=== PATIENT | female | born 1995 | race Caucasian/White ===

== ENCOUNTER 2021-07-26 06:35 | Inpatient (IN) | payer SELFPAY, OTHER ==
[2021-07-26] VITALS (23 sets, daily range): BP systolic 84–108; BP diastolic 42–67; PULSE 52–73; RESP 14–18; TEMP 35.8–37.1; O2SAT 96–100; BMI 25.0
[2021-07-26] MEDS: Lactated Ringers 1,000 ML 999 ML IV ×2 (07:25→12:55)
[2021-07-26] MEDS: Sodium Citrate/Citric Acid 30 ML UDC PO (07:30)
[2021-07-26] MEDS: Acetaminophen 500 MG Tablet 1000 MG PO ×3 (07:36→19:46)
[2021-07-26 07:48] LABS: Absolute Lymphocyte Count 1.73 X10^3/uL (0.83-4.51); Absolute Neutrophil Count 4.6 X10^3/uL (2.0-7.7); Basophil# 0.03 X10^3/uL; Basophil% 0.4 % (0-1); Eosinophil# 0.04 X10^3/uL; Eosinophils% 0.6 % (0-5); Hemoglobin 11.9 g/dL (12.0-15.0); Lymphocyte # 1.73 X10^3/ul (0.83-4.51); Lymphocyte % 24.6 % (19-41); Mean Corpuscular Hgb 29.2 pg (27.0-32.0); Mean Platelet Vol. 10.1 fl (6.2-12.0); Monocyte# 0.61 X10^3/uL; Monocyte% 8.7 % (0-10); NRBC Flagged by Analyzer 0 % (0-5); Neutrophil # 4.55 X10^3/uL (2.7-7.7); Neutrophil % 64.7 % (47-70); Platelet Count 263 K/mm3 (150-450); RBC Distribution Width CV 14.9 % (11.6-14.6); RBC Distribution Width SD 46.5 fl (35.1-43.9); Red Blood Count 4.07 M/mm3 (4.2-5.4)
--- NOTE | 2021-07-26 07:50 | HP.PCM.OB_ITS ---
HPI - General General Date of Admission: 07/26/21 HPI Narrative ANANT JEFFERS, is a 25 F who presents from [facility] with contractions, 6 cm dilated with BBOW, and breech presentation. H/o 2 vaginal deliveries followed by a section for breech presentation. Planned for TOLAC at [facility] for this . She presented to our office for 2 visits for co-care. Maternal Data Information MICHELLE Calculator Estimated Delivery Date Method Current WG Current Estimate 07/30/21 Ultrasound #1 39w 3d PFSH PFSH Medical History (Updated 07/26/21 @ 13:[address] Teresita Cain, DO) Anxiety Depression Headache Late care affecting in first trimester Superficial varicosities Vaginal after Allergy/AdvReac Type Severity Reaction Status Date / Time No Known Allergies Allergy Verified 07/26/21 07:29 Family History (Updated 07/26/21 @ 12:14 by Mackenzie Chaudhry) Other Family history of defect Surgical History (Updated 07/26/21 @ 13:[address] Teresita Cain, ) History of surgery Previous section Social History Smoking Status: Never smoker History Elective abortions Hx Para 3 Spontaneous abortions Hx # Term Pregnancies Ectopic pregnancies Hx # Pregnancies Multiple births # of living children Vital Signs Vital Signs Vital Signs: Weight Weight: 141 lb Body Mass Index (BMI) 25.0 Labs Labs Labs: Blood Type O POSITIVE Antibody Screen NEGATIVE Hct 35.0 % (37-47) L Hgb 11.9 g/dL (12.0-15.0) L HIV 1&2 Antibody Non-Reactive (Nonreactive) Assessment & Plan (1) 39 weeks gestation of : PLAN: - Pt presented in active labor from [facility] in breech presentation. Discussed r/b/a to a section and consent signed. Patient desired to proceed with section. Routine pre op care. See operative report for details. Had her care through [facility]. She presented to our office at 27 weeks and 38 weeks for co-care. (2) Active labor: (3) Breech presentation: (4) History of section:
[2021-07-26] MEDS: Cefazolin 2 GM in 0.9% Normal Saline 100 ML IV (07:55)
--- NOTE | 2021-07-26 08:58 | OP.PCM_ITS ---
Problems Associated Problem List Diagnoses (1) History of section: (2) Breech presentation: (3) Active labor: (4) 39 weeks gestation of : Report of Operation Date of Procedure: 07/26/21 Pre-Operative Diagnosis: 39 week gestation, breech presentation, active labor, history prior section Post-Operative Diagnosis: As above Surgery/Procedure Performed:: Primary low transverse section via pfannenstiel incision Description of Surgical Findings:: Patient presented in active labor at 6 cm dilated with BBOW, and breech presentation. Minimal to no adhesive disease. Normal uterus and bilateral adnexa. Normal placenta. VFI in breech presentation but flipped to transverse back down upon rupture of membranes. Surgeon: Teresita Cain visual merchandising coordinator: Renae Type of Anesthesia: Spinal Special Medications: None Specimen's removed: Placenta Drains: Scott Estimated Blood Loss (mL): 500 Fluids Replaced: 1000 Description of Procedure: An ultrasound was performed confirming breech presentation. Patient was taken back to the operating room EDDIE where spinal anesthesia was adequate. FHT were assessed and WNL. Fetus was palpated to be in breech presentation. The buttock was not engaged in the pelvis. A scott was placed in the bladder. She was prepped and draped in the usual sterile fashion in dorsal position with a leftward tilt. A skin incision was made along the prior incision using a scalpel. This was carried down to the underlying layer of fascia. The fascia was incised in the midline, and extended laterally using mcmullen scissors. The fascia was dissected off the rectus muscles using a combination of blunt and sharp dissection, with some adhesive disease present. The rectus muscles were separate in the midline and the peritoneum was entered sharply with good visualization of the bladder. The peritoneal incision was extended bluntly. A bladder flap was made using scissors. A low transverse incision was made on the uterus with the scalpel, and the hysterotomy was extended bluntly. The membranes were intact. The buttock was palpated and attempt was made to bring the unengaged buttock to the hysterotomy, but the membranes then ruptured and the fetus moved to transverse back down. The buttock was able to be palpated, and it was felt that making an additional incision on the uterus would not assist in delivery of the buttock. The buttock was able to be brought to the hysterotomy. The 's buttock was then delivered with the back up, followed by the legs and body of the infant. Using gentle rotation the arms then delivered, and with fundal pressure the head was easily delivered in a flexed position. The cord was clamped and cut immediately and the infant handed off to the awaiting nursery staff. The uterus was exteriorized and the placenta removed with manual extraction. Cord gases were sent. The uterus was cleared of all clot and debris. The uterine incision was closed in 2 layers. The first layer was a running locked layer using Vicryl followed by a second imbricating layer using Vicryl. The uterus was placed back into the abdomen. The gutters were cleared. Two additional figure of eight sutures were placed for hemostasis. Arrista was placed over the hysterotomy. Hemostasis was noted. The peritoneum was closed with Vicryl in a running fashion. The fascia was closed with Strattafix in a running fashion. The subcutaneous space was irrigated and made hemostatic with the Bovie cautery. Arrista was placed in the subcutaneous space as it was generally oozing. The subcutaneous space was reapproximated with three interrupted Vicryl stitches to reapproximate the skin better. The skin was then closed with Monocryl in a subcuticular fashion. A dressing was placed. Instrument, sponge and needle counts were correct. The patient was taken to the recovery room in stable condition. Grafts/Implants Used: None Complications None Admit VTE Documentation VTE Present on Admission: No VTE Mechan Device Prophylaxis: SCD's
[2021-07-26 09:16] LABS: HIV - WCH Non-Reactive (Nonreactive); Hepatitis C Antibody Non-Reactive (Nonreactive)
[2021-07-26] MEDS: Oxytocin 30 units/NS 500 ml 30 UNITS/500 ML IV.SOLN 167 UNITS IV (09:20)
[2021-07-26] MEDS: Ketorolac 30 MG/ML Syringe IV ×3 (09:52→21:38)
[2021-07-26] MEDS: 0.9% Saline Lock 10 ML Syringe IV ×2 (09:53→21:39)
[2021-07-26] MEDS: Lactated Ringers 1,000 ML 100 ML IV (12:25)
--- NOTE | 2021-07-26 12:37 | NURSING ---
phone call placed to dr ruiz- made aware of drainage on mepilex about 1/3 saturated- plan will be to placed a binder on pt. dr ruiz made aware of pts decrease in urine output less than 30 cc over last hour- plan is to give [address] ruiz made aware of BP 88/49 and pulse of 55. dr ruiz made aware of pts statement that she thinks she had a blood clot 1-2 months ago but did not seek medical attention and it went away in [address] wang made aware that pt is Non Immune to MMR and that she refused the vaccine.
--- NOTE | 2021-07-26 12:57 | NURSING ---
binder on and pressure to abd incision
--- NOTE | 2021-07-26 13:53 | NURSING ---
small amount of additional drainage on dressing
--- NOTE | 2021-07-26 15:44 | NURSING ---
pt up oob to chair
--- NOTE | 2021-07-26 16:04 | NURSING ---
mepilex is 50% saturated- abd binder remains on with pressure from a rolled towel
--- NOTE | 2021-07-26 16:07 | NURSING ---
dr ruiz made aware of mepilex 50% saturated- ok to replace mepilex dressing per dr ruiz
--- NOTE | 2021-07-26 17:41 | NURSING ---
mepilex dressing changed per Dr Cain request; no active bleeding see at incision site- new mepilex dressing applied- binder back on without towel
[2021-07-26] MEDS: Lactated Ringers 500 ML 999 ML IV (20:27)
[2021-07-27] MEDS: Acetaminophen 500 MG Tablet 1000 MG PO ×4 (01:51→21:02)
[2021-07-27 03:45] VITALS: BP 93/47; BP 94/51; PULSE 57; RESP 18; TEMP 37
[2021-07-27] MEDS: Ketorolac 30 MG/ML Syringe IV (03:55)
[2021-07-27] MEDS: 0.9% Saline Lock 10 ML Syringe IV (03:55)
[2021-07-27 04:13] LABS: Hematocrit 29.3 % (37-47); Mean Corp Hgb Conc 34.1 g/dL (32-36); Mean Corpuscular Hgb 29.5 pg (27.0-32.0); Mean Corpuscular Volume 86.4 fL (81-99); Platelet Count 196 K/mm3 (150-450); RBC Distribution Width CV 14.8 % (11.6-14.6); RBC Distribution Width SD 46.7 fl (35.1-43.9); Red Blood Count 3.39 M/mm3 (4.2-5.4); White Blood Count 7.1 K/mm3 (4.4-11.0)
[2021-07-27 08:30] VITALS: BP 97/58; PULSE 56; RESP 18; TEMP 36.4
[2021-07-27] MEDS: Ibuprofen 600 MG Tablet PO ×3 (10:23→21:57)
--- NOTE | 2021-07-27 13:20 | PCM.PN.OB ---
Subjective Subjective Denies complaints Objective Data Objective Data Vital Signs: Vital Signs Temp Pulse Resp BP Pulse Ox 97.6 F L 56 L 18 97/58 L 98 07/27/21 08:30 07/27/21 08:30 07/27/21 08:30 07/27/21 08:30 07/26/21 23:50 Oxygen Delivery Method Room Air Weight: 141 lb Body Mass Index (BMI) 25.0 Intake & Output: Intake and Output for Last 24 Hours 07/25/21 07/26/21 07/27/21 23:59 23:59 23:59 Intake Total 5748.52 / 5748.52 Output Total 1500 / 2100 1250 / 1250 Balance 4248.52 / 3648.52 -1250 / -1250 Lab / Micro Data Result Diagrams: 07/27/21 04:05 Labs: Laboratory Results - last 24 hr 07/27/21 04:05: WBC 7.1, RBC 3.39 L, Hgb 10.0 L, Hct 29.3 L, MCV 86.4, MCH 29.5, MCHC 34.1, RDW Std Deviation 46.7 H, RDW Coeff of Wojciech 14.8 H, Plt Count 196, MPV 10.0 Micro: Microbiology 07/26/21 07:30 Nasal Secretion SARS-CoV-2 Antigen (Rapid) - Final Physical Exam Const alert, oriented x3 and no apparent distress HEENT normocephalic GI soft to palpation, non-tender and non-distended GI Narrative: fundus firm, mid & below umbilicus Incision - bandage c/d/i Extremity normal to inspection and no calf tenderness Assessment & Plan (1) History of section: COMMENT: POD#1 PLAN: Heme - HDS, CBC reviewed ID - AF, no signs infection - no issues GI - tolerating regular diet Routine care
[2021-07-27 13:42] VITALS: BP 96/54; PULSE 68; RESP 18; TEMP 36.6
[2021-07-27] MEDS: Senna/Docusate Sodium 1 Tablet PO (13:44)
[2021-07-27 19:34] VITALS: BP 103/61; PULSE 59; RESP 16; TEMP 36.6
[2021-07-28 02:10] VITALS: BP 108/62; PULSE 65; RESP 16; TEMP 36.6
[2021-07-28] MEDS: Acetaminophen 500 MG Tablet 1000 MG PO ×2 (03:45→10:48)
[2021-07-28] MEDS: Ibuprofen 600 MG Tablet PO ×2 (03:45→10:48)
[2021-07-28 08:01] VITALS: BP 108/69; PULSE 75; RESP 16; TEMP 36.8
--- NOTE | 2021-07-28 08:59 | PN.OBGYN_ITS ---
Subjective Subjective Pain well controlled. Average lochia. No bowel movement but tolerating regular diet and passing flatus. Urinating without difficulty. Objective Data Objective Data Vital Signs: Vital Signs Temp Pulse Resp BP Pulse Ox 98.3 F 75 16 108/69 98 07/28/21 08:01 07/28/21 08:01 07/28/21 08:01 07/28/21 08:01 07/26/21 23:50 Oxygen Delivery Method Room Air Weight: 63.957 kg Body Mass Index (BMI) 25.0 Intake & Output: Intake and Output for Last 24 Hours 07/26/21 07/27/21 07/28/21 23:59 23:59 23:59 Intake Total 5748.52 / 5748.52 Output Total 1500 / 2100 1250 / 1250 Balance 4248.52 / 3648.52 -1250 / -1250 Lab / Micro Data Result Diagrams: 07/27/21 04:05 Micro: Microbiology 07/26/21 07:30 Nasal Secretion SARS-CoV-2 Antigen (Rapid) - Final Physical Exam Const alert General Appearance: cooperative GI GI Narrative: soft, moderate distention, fundus firm, appropriately tender. Abdominal bandage clean dry and intact Assessment & Plan (1) History of section: COMMENT: POD#2 PLAN: day #2 status post repeat section for active labor and breech. Patient and are doing well. is breast- feeding. Patient desires discharge home today. Has not been taking narcotic pain medication.
--- NOTE | 2021-07-28 09:00 | PCM.DC.SUM ---
Providers Date of Admission: 07/26/21 Primary Care Physician: Dr. Magdiel Johnson DO Reason For Visit: REPEAT CSECTION Diagnosis Discharge Diagnosis (1) History of section: Status: Acute Code(s): Z98.891 - History of uterine scar from previous surgery Hospital Course Operations - (Repeat low transverse section performed on 07/26/2021) Summary of Care Provided Hospital Course: Liss is a 25-year-old multigravida female with history of previous section and breech presentation of her fetus who presented in active labor. Patient was taken for repeat section which was performed on 07/26/2021 without complications. By postoperative day #2 she was ambulating, urinating tolerating regular diet without difficulty. She was discharged home with routine instructions. Weight / BMI Weight Weight: 63.957 kg Body Mass Index (BMI) 25.0 ABG / Lab / Microbiology Data Result Diagrams: 07/27/21 04:05 Microbiology: Microbiology 07/26/21 07:30 Nasal Secretion SARS-CoV-2 Antigen (Rapid) - Final Meaningful Use Info Meaningful Use Diagnoses (Choose all that apply): None applicable Discharge Plan Admission Admit Date/Time: 07/26/21 06:35 Primary Reason for Your Visit: Breech fetus, repeat Attending Provider: Teresita Cain Primary Care Provider: Magdiel Johnson Discharge Orders/Prescriptions Referrals / Follow Up: Magidel Johnson DO [Primary Care Provider] - Disposition Disposition (needs filled in before D/C Order can be placed): Home, Self Care
[2021-07-28] MEDS: Senna/Docusate Sodium 1 Tablet PO (10:48)
--- NOTE | 2021-07-28 10:53 | CASEMGMT ---
Social Work Assessment Labor and Delivery Unit Date/Time of Referral: 07/26/21, 12:20pm Referred By: Dr. Teresita Cain DO Date/Time of Intervention: 07/28/21, 10am Reason for referral: History of Anxiety and Depression History obtained from: JEFFERY Household composition: MATTHEW GIL, 4 children--ages 4.5, 3.5, 1.5 and now Leandra. MOB and FOBrittany have been together for 5.5 years Parent/Guardian Status: MOB and FOB are guardians of all four children Medical History: MOB, anxiety, depression, late care, headache. Baby Leandra: Born 07/26/21 at 8:50am, 3.06kg. Apgars 2,8,9 and 1, 5 and 10 minutes Educational Status: MOB and FOBrittany completed school until the 8th grade Financial: No concerns. FOB works as a finisher, MOB stays home with the children supplies: They have all needed supplies including car seat, bassinet, clothing, diapers, wipes. MOB plans to breast feed. They have a crib, however the 1.5 year old is using it. Childcare/Caregivers: JEFFERY, MATTHEW. JEFFERY's sister who is 14 is going to stay with them during the day for the next 6 weeks to help. JEFFERY's mother lives across the field and will help, JEFFERY also has another sister she thinks will help. Transportation: They have a commercial relief driver, access to transportation Programs/Agencies Involved: None Children's Services/Legal Issues: None Behavioral Health Issues: Substance abuse, none for FOB or MOB. No tox screens completed on this admission for MOB or baby. Mental Health: MATTHEW has no history. MOB explains she has never been formally diagnosed with anxiety or depression. She states she thinks she has had symptoms of anxiety and depression however. JEFFERY then asked SW exactly what anxiety and depression are. SW educated JEFFERY on what anxiety and depression is. JEFFERY explains that she has had moments of feeling down, but it was more situational. JEFFERY gave an example that her family went on vacation to [place] and she was not able to go as she had 3 children and was at the time. She states that she was having a pity constitution party for herself, but got over it and was okay with it. She then went on to say she has a brand new house she and her family just moved into last week, and is very happy about this. She states she prefers to have this new house than to have gone on vacation. She also mentioned feeling down when during the pandemic. Other than that however, pt does not think depression is actually a concern for her. When discussing anxiety, JEFFERY identified that she has had more symptoms of anxiety in the past. She states recently however she has been managing well. She states she found a combination of oils she takes that helps. We talked about speaking to her doctor should any symptoms of anxiety or depression increase, and we also discussed counseling. MOB may be open to counseling at some point should it be needed. Family/Social Stressors: JEFFERY does not identify any stressors at this time. She states there was some issues with her 's family, but those are resolving now. Support Systems: JEFFERY's family is supportive, MATTHEW's family is further away, MOB states they would come help if asked Depression and Anxiety/Shaken Baby/Help Me Grow/Safe Sleeping/Resources: SW provided information on all of these topics, reviewed the information in particular around depression and anxiety. MOB states she has not had any increase of any depressive symptoms in the past. SW gave MOB list of [facility] Resources, pointed out [facility] as a resource for counseling. SW also gave MOB the number to the 24 hour hotline for [facility] should she need it. Assessment: JEFFERY appropriate, answered all questions, and asked good questions for clarification on depression and anxiety. JEFFERY had little knowledge base of anxiety and depression, was open to hearing the information and seemed to understand the explanations. Though she had little knowledge base, she was able to identify that she has had struggles with anxiety, and has addressed it using oils that she identifies as helping. MOB made aware of warning signs for these mental health issues and was encouraged to speak to her doctor should she have any increased symptoms. MOB seems open to the idea of asking for help with her mental health should she need it. Plan: Baby to go home with MOB and FOBrittany, later today. No further social service needs identified or anticipated. EMMA Schaeffer
[2021-07-28 12:08] VITALS: BP 111/65; PULSE 66; RESP 16; TEMP 36.6
== END 2021-07-28 12:55 | disposition home or self-care (01) | DRG 788 ==
PROVIDERS: Admitting Provider Obstetrics & Gynecology; PCP Family Medicine; Visit Provider Obstetrics & Gynecology
DX: O34.211 Maternal care for low transverse scar from previous cesarean delivery (principal); O32.1XX0 Maternal care for breech presentation, not applicable or unspecified; Z3A.39 39 weeks gestation of pregnancy; Z37.0 Single live birth
CPT/HCPCS: 59025; 85025; 85027; 86703; 86803; 86850; 86900; 86901; 87426; 99218; J7120; A4216; G0378; J2405

== ENCOUNTER 2024-05-07 09:32 | Inpatient (IN) | payer SELFPAY, OTHER ==
[2024-05-07] VITALS (16 sets, daily range): BP systolic 90–107; BP diastolic 60–81; PULSE 54–80; RESP 14–19; TEMP 36.2–36.8; O2SAT 96–100; BMI 24.2
[2024-05-07] MEDS: Lactated Ringers 1,000 ML 999 ML IV (09:45)
[2024-05-07 10:14] LABS: Absolute Lymphocyte Count 1.51 X10^3/uL (0.83-4.51); Absolute Neutrophil Count 4.8 X10^3/uL (2.0-7.7); Basophil# 0.02 X10^3/uL; Basophil% 0.3 % (0-1); Eosinophil# 0.05 X10^3/uL; Eosinophils% 0.7 % (0-5); Hematocrit 36.5 % (37-47); Hemoglobin 12.3 g/dL (12.0-15.0); Lymphocyte # 1.51 X10^3/ul (0.83-4.51); Mean Corp Hgb Conc 33.7 g/dL (32-36); Mean Corpuscular Hgb 29.9 pg (27.0-32.0); Mean Corpuscular Volume 88.6 fL (81-99); Mean Platelet Vol. 10.7 fl (6.2-12.0); Monocyte# 0.42 X10^3/uL; Monocyte% 6.1 % (0-10); NRBC Flagged by Analyzer 0 % (0-5); Neutrophil # 4.78 X10^3/uL (2.7-7.7); Neutrophil % 69.9 % (47-70); Platelet Count 172 K/mm3 (150-450); RBC Distribution Width CV 14.7 % (11.6-14.6); RBC Distribution Width SD 47.6 fl (35.1-43.9); Red Blood Count 4.12 M/mm3 (4.2-5.4); White Blood Count 6.9 K/mm3 (4.4-11.0)
[2024-05-07] MEDS: Acetaminophen 500 MG Tablet 1000 MG PO ×3 (10:38→22:30)
[2024-05-07 11:07] LABS: Syphilis Antibodies Non-reactive
--- NOTE | 2024-05-07 11:58 | PN.OBGYN_ITS ---
Subjective Subjective Doing well. Ambulating and voiding without difficulty. Mild lochia. Breast feeding. Objective Data Objective Data Vital Signs: Vital Signs Temp Resp Pulse Ox 97.2 F L 15 100 05/07/24 10:35 05/07/24 10:35 05/07/24 10:35 Weight: 68.039 kg Body Mass Index (BMI) 24.2 Lab / Micro Data 05/08/24 04:40 Labs: Laboratory Results - last 24 hr 05/07/24 09:45: WBC 6.9, RBC 4.12 L, Hgb 12.3, Hct 36.5 L, MCV 88.6, MCH 29.9, MCHC 33.7, RDW Std Deviation 47.6 H, RDW Coeff of Wojciech 14.7 H, Plt Count 172, MPV 10.7, Immature Gran % (Auto) 1.000 H, Neut % (Auto) 69.9, Lymph % (Auto) 22.0, Mccracken % (Auto) 6.1, Eos % (Auto) 0.7, Baso % (Auto) 0.3, Absolute Neuts (auto) 4.8, Absolute Lymphs (auto) 1.51, Nucleated RBC % 0, Syphilis Total Ab Non- reactive, Blood Type O POSITIVE, Antibody Screen NEGATIVE ROS Constitutional Constitutional: Denies fatigue, fever(s) or malaise Eyes Eyes: Denies change in vision ENT HEENT: Denies dizziness or headache(s) Cardiovascular Cardiovascular: Denies chest pain, dyspnea or lightheadedness Respiratory/Chest Respiratory/Chest: Denies cough or dyspnea Gastrointestinal Gastrointestinal: Denies change in bowel habits Genitourinary Genitourinary: Denies burning urination or genital lesions Integumentary Integumentary: Denies rash Neurologic Neurologic: Denies confusion, dizziness, headache(s), numbness or weakness Physical Exam Const alert General Appearance: cooperative GI GI Narrative: soft, moderate distention, fundus firm, appropriately tender. Abdominal bandage clean dry and intact Assessment & Plan (1) S/P repeat low transverse : PLAN: Plan discharge home
--- NOTE | 2024-05-07 11:58 | PCM.HP.OB ---
HPI - General General Date of Admission: 05/07/24 Date of Service: 05/07/24 Chief Complaint: Repeat c/s HPI Narrative ANANT JEFFERS, is a 28 F who presents repeat at 40.4 Maternal Data Information Final MICHELLE: 05/03/24 Gestational age: 40+6 [facility] Medical History Late care affecting in first trimester Vaginal after Superficial varicosities Depression Anxiety Headache Allergy/AdvReac Type Severity Reaction Status Date / Time No Known Allergies Allergy Verified 07/26/21 07:29 Family History Other Family history of defect Surgical History History of section History of surgery Previous section Social History Smoking Status: Never smoker History Elective abortions Hx Para 4 Spontaneous abortions Hx # Term Pregnancies Ectopic pregnancies Hx # Pregnancies Multiple births # of living children ROS Constitutional Constitutional: Denies fatigue, fever(s) or malaise Eyes Eyes: Denies change in vision ENT HEENT: Denies dizziness or headache(s) Cardiovascular Cardiovascular: Denies chest pain, dyspnea or lightheadedness Respiratory/Chest Respiratory/Chest: Denies cough or dyspnea Gastrointestinal Gastrointestinal: Denies change in bowel habits Genitourinary Genitourinary: Denies burning urination or genital lesions Integumentary Integumentary: Denies rash Neurologic Neurologic: Denies confusion, dizziness, headache(s), numbness or weakness Vital Signs Vital Signs Vital Signs: 05/07/24 10:35 05/07/24 10:35 05/07/24 10:35 Temperature Temperature Source Tympanic Respiratory Rate 15 Pulse Ox 100 05/07/24 10:35 Temperature 97.2 F L Temperature Source Respiratory Rate Pulse Ox Weight Weight: 68.039 kg Body Mass Index (BMI) 24.2 Physical Exam Const alert and no apparent distress General Appearance: cooperative HEENT normocephalic Resp normal respiratory effort Cardio regular rate GI soft to palpation GI Narrative: gravid, nontender, appropriate for gestational age Extremity no calf tenderness General Extremity: edema Skin no wounds Rashes: No rashes noted Psych activity/motor behavior normal Labs Labs Labs: Blood Type O POSITIVE Antibody Screen NEGATIVE Hct 36.5 % (37-47) L Hgb 12.3 g/dL (12.0-15.0) Syphilis Total Ab Non-reactive Hepatitis C Antibody Non-Reactive (Nonreactive) HIV 1&2 Antibody Non-Reactive (Nonreactive) Rhogam given: No Assessment & Plan (1) 40 weeks gestation of : (2) Previous section complicating : PLAN: Plan scheduled repeat
[2024-05-07] MEDS: Sodium Citrate/Citric Acid 30 ML UDC PO (12:02)
[2024-05-07] MEDS: Cefazolin 2 GM in Syringe IV (12:11)
--- NOTE | 2024-05-07 13:21 | EX.PCM.OBRPT ---
Assessment & Plan (1) Previous section complicating : (2) S/P repeat low transverse : Maternal Data Information Final MICHELLE: 05[birth year]03/24 Gestational age: 40+4 Operative Report (OB) Cecarean Details Procedure Type: low transverse Date of Procedure: 05/07/24 Procedure Start Time: 12:42 Procedure Stop Time: 13:21 Time of Delivery: 12:42 Pre-Operative Diagnosis: Repeat Elective Post-Operative Diagnosis: Same as Pre-operative diagnosis Classification: Scheduled Type of Anesthesia: Spinal Antibiotic Given: Ancef 2 grams IV x1 Drain: Romero to straight drain Estimated Blood Loss: 500 cc Findings Description of surgery: Patient taken to the OR where spinal was placed. Romero was placed in her bladder and then she was prepped and draped in the normal sterile fashion. A Pfannenstiel incision was made and carried down to the underlying fascia. The fascia was incised in the midline and extended laterally. The fascia was dissected from the muscle. The muscles divided in the midline. The peritoneum was entered bluntly and extended manually. A bladder blade was placed. A bladder flap was created. A low transverse incision was made and extended bluntly. The head was elevated to the incision. The shoulders delivered easily. The cried upon delivery. The cord was cut and clamped. The placenta was delivered with gracie traction. The uterus was exteriorized and cleared of all clot and debris. The incision was repaired with 1-0 Vicryl x 2. The uterus was returned the abdomen. The gutters were cleared of all clots. The peritoneum was closed with 2-0 Monocryl. The fascia was closed with 1-0 Vicryl. The subcutaneous tissue was reapproximated with 2-0 Monocryl The skin was closed with 4-0. I performed the major parts of the procedure with the RFNA assisting with retraction and closing the skin. The sponge lap and needle count was correct x 2 Surgical findings: Normal uterus tubes and ovaries Presentation: Vertex and SONJA Amniotic Membrane Rupture Type: Artificial Amniotic Fluid Description: Clear Placental Delivery Description: Expressed Placenta Disposition: [facility] Specimen collected: No Cord Vessel Description: 3 Vessels Cord Entanglement: None Infant A gender: Male (1 minute): 8 (5 minute): 9 Delayed Cord Clamping: Yes It Infrastructure Architect wheel and caster repairer: Yes Freelance Art Director: Clarence Sousa Tasks completed by medical research assistant: Opening & closing and Retracting Complications Complications: No
[2024-05-07] MEDS: Oxytocin 15 Units/NS 250ml 15 UNITS/250 ML IV.SOLN 83 UNITS IV (13:45)
[2024-05-07] MEDS: Ketorolac 30 MG/ML Syringe IV ×2 (14:07→20:09)
--- NOTE | 2024-05-07 14:39 | NURSING ---
1430 pts pulse running 45-55 phone call placed to brooke. twice with no response- phone placed to dr ricketts- states that the pt had a low maternal heart rate in the OR after a medication administration and that dr cruz pointed it out to her and she might have a low heart rate till it wears off- continuing to monitor
--- NOTE | 2024-05-07 14:42 | NURSING ---
1428 pt denying any symptoms of low heart rate - states that she only feels tired
--- NOTE | 2024-05-07 15:28 | EKG12_ITS ---
Test Reason : bradycardia Blood Pressure : */* mmHG Vent. Rate : 48 BPM Atrial Rate : 48 BPM P-R Int : 134 ms QRS Dur : 78 ms QT Int : 478 ms P-R-T Axes : 58 10 13 degrees QTcB Int : 427 ms Sinus bradycardia Low voltage QRS Borderline ECG No previous ECGs available Confirmed by WILFREDO MCCALL, PIERRE ([id number]), proposal editor SCOOTER BONE ([id number]) on 05/08/2024 2:20:17 PM Referred By: Teri Umanzor Confirmed By: PIERRE VILLALOBOS MD
--- NOTE | 2024-05-07 15:30 | NURSING ---
pts maternal heart rate decreasing to 45 again- dr cruz called and given update- ekg ordered
--- NOTE | 2024-05-07 15:57 | NURSING ---
ekg done results read to dr cruz
--- NOTE | 2024-05-07 18:26 | NURSING ---
pts maternal heart rate running 60-80- ecg leads removed- dr ricketts aware
[2024-05-07] MEDS: 0.9% Saline Lock 10 ML Syringe IV (20:09)
[2024-05-08 00:12] VITALS: BP 88/47; PULSE 80; RESP 14; RESP 16; TEMP 36.4; O2SAT 98
[2024-05-08] MEDS: Ketorolac 30 MG/ML Syringe IV ×2 (01:36→07:52)
[2024-05-08] MEDS: 0.9% Saline Lock 10 ML Syringe IV ×2 (01:37→07:52)
[2024-05-08 04:00] VITALS: BP 92/54; PULSE 56; RESP 16; TEMP 36.4; O2SAT 100
[2024-05-08] MEDS: Acetaminophen 500 MG Tablet 1000 MG PO ×3 (04:39→16:51)
[2024-05-08 04:52] LABS: Hematocrit 32.5 % (37-47); Hemoglobin 11.2 g/dL (12.0-15.0); Mean Corp Hgb Conc 34.5 g/dL (32-36); Mean Corpuscular Hgb 30.4 pg (27.0-32.0); Mean Corpuscular Volume 88.1 fL (81-99); Mean Platelet Vol. 10.6 fl (6.2-12.0); Platelet Count 159 K/mm3 (150-450); RBC Distribution Width CV 14.7 % (11.6-14.6); RBC Distribution Width SD 46.8 fl (35.1-43.9); Red Blood Count 3.69 M/mm3 (4.2-5.4); White Blood Count 8.8 K/mm3 (4.4-11.0)
--- NOTE | 2024-05-08 06:49 | DS.PCM_ITS ---
Providers Date of Admission: 05/07/24 Date of Discharge: 05/08/24 Primary Care Physician: Dr. 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 Uncomplicated course. Physical Exam Const alert General Appearance: cooperative GI GI Narrative: soft, moderate distention, fundus firm, appropriately tender. Abdominal bandage clean dry and intact Weight / BMI Weight Weight: 68.039 kg Body Mass Index (BMI) 24.2 ABG / Lab / Microbiology Data 05/08/24 04:40 Laboratory: Laboratory Results - last 24 hr 05/07/24 09:45: WBC 6.9, RBC 4.12 L, Hgb 12.3, Hct 36.5 L, MCV 88.6, MCH 29.9, MCHC 33.7, RDW Std Deviation 47.6 H, RDW Coeff of Wojciech 14.7 H, Plt Count 172, MPV 10.7, Immature Gran % (Auto) 1.000 H, Neut % (Auto) 69.9, Lymph % (Auto) 22.0, [place] % (Auto) 6.1, Eos % (Auto) 0.7, Baso % (Auto) 0.3, Absolute Neuts (auto) 4.8, Absolute Lymphs (auto) 1.51, Nucleated RBC % 0, Syphilis Total Ab Non- reactive, Blood Type O POSITIVE, Antibody Screen NEGATIVE 05/08/24 04:40: WBC 8.8, RBC 3.69 L, Hgb 11.2 L, Hct 32.5 L, MCV 88.1, MCH 30.4, MCHC 34.5, RDW Std Deviation 46.8 H, RDW Coeff of Wojciech 14.7 H, Plt Count 159, MPV 10.6 D/C Instructions Discharge Diet: No restrictions May resume sexual activity in: 4-6 weeks Lifting Restrictions: 20 pounds Additional Activity Instructions: Nothing in the vagina for 4-6 weeks. You may return to work/school in 6 weeks. Call your doctor if your incision/area has: Continuous Slow Oozing, Sudden Increased Bleeding, Increased Pain/ Swelling, Increased Redness and Foul Smelling Discharge Call your doctor if you observe: Fever of 101 or Higher and Using more than 1 pad per hour (for 2 hours) Suture Line Care: Avoid Pulling/Pushing and Avoid Pinching/Bending Cleanse incision/area with: Keep Dressing Clean & Dry DC O2, CPAP, BIPAP Needs Additional Home O2 Discharge instructions: No DC home with Oxygen: No Please Follow Up With: Aditi Eisenberg MD When: Call to make an appointment for an incision check in 1-2 [phone]. You will need a post check in 6 weeks. Meaningful Use Info Meaningful Use Meaningful Use Diagnoses (Choose all that apply): None applicable Ischemic Stroke Statin Dosing Therapy Reference: STATIN DOSE THERAPY REFERENCE: * Patients > 75 years receive moderate or high dose statin therapy. * Patients 75 years or YOUNGER should receive HIGH intensity statin dose unless contraindicated. You will be required to document reason for non-treatment if statin daily dose does not meet guidelines. HIGH DOSE STATIN THERAPY DAILY Atorvastatin > than or = to 40 mg Rosuvastatin > than or = to 20 mg Amlodipine + Atorvastatin > than or = to 2.5/40 mg Ezetimibe + Simvastatin 10/80 mg Simvastatin 80mg Discharge Plan Admission Admit Date/Time: 05/07/24 09:32 Primary Reason for Your Visit: repeat c-setion Attending Provider: Teri Umanzor Primary Care Provider: Magdiel Johnson Discharge Orders/Prescriptions Prescriptions: Continued PNV cmb#95-ferrous fumarate-FA [] 28 mg iron- 800 mcg tablet 1 tab PO DAILY calcium carbonate 600 mg calcium (1,500 mg) tablet 600 mg PO DAILY Discontinued evening primrose oil 500 mg capsule 500 mg PO DAILY Rx Instructions: give with meal/snack Referrals / Follow Up: Magdiel Johnson DO [Primary Care Provider] - Disposition Disposition (needs filled in before D/C Order can be placed): Home, Self Care
[2024-05-08 08:15] VITALS: BP 103/66; PULSE 55; RESP 16; TEMP 37.4; O2SAT 98
[2024-05-08] MEDS: Senna/Docusate Sodium 1 Tablet PO (10:18)
[2024-05-08] MEDS: Ibuprofen 600 MG Tablet PO (13:41)
[2024-05-08 14:00] VITALS: BP 105/63; PULSE 56; RESP 14; TEMP 36.9; O2SAT 96
== END 2024-05-08 17:20 | disposition home or self-care (01) | DRG 788 ==
PROVIDERS: Admitting Provider Obstetrics & Gynecology; PCP Family Medicine; Referring Provider Obstetrics & Gynecology; Visit Provider Obstetrics & Gynecology
PROC: 10D00Z1 Extraction of Products of Conception, Low, Open Approach (ICD-10-PCS; CPT 59514; principal; 2024-05-07 11:45)
DX: O34.211 Maternal care for low transverse scar from previous cesarean delivery (principal); Z37.0 Single live birth; Z3A.40 40 weeks gestation of pregnancy
CPT/HCPCS: 59050; 85025; 85027; 86780; 86850; 86900; 86901; 93005; 99221; J7120; A4216; G0378